=== PATIENT | male | born 1975 | race Caucasian/White ===

== ENCOUNTER 2016-10-14 12:16 | Emergency (ER) | payer MEDICAID ==
--- NOTE | 2016-10-14 13:10 | ED Physician Documentation ---
History of Present Illness - Stated complaint Stated Complaint: ABD BURNING,N/V - Chief complaint Chief Complaint: Abd Pain - Additonal information Additional information: hx from pt 41 male always has nausea 2/2 hashimotos but last few days increasing severe upper abd burning radiating to his chest no back or shoulder pain no fever no vomit or diarrhea or blood in stool no asa NSAID EtOH spicy food or stress fhx gallstones no prior surgery Review of Systems Constitutional: denies: Fever Throat: denies: Sore throat Cardiac: reports: Chest pain / pressure (rad from abd) Respiratory: denies: Dyspnea, Cough GI: reports: Abdominal Pain, Nausea. denies: Vomiting, Diarrhea, Bloody / black stool : denies: Dysuria Musculoskeletal: denies: Neck pain, Back pain Neurologic: denies: Generalized weakness Endocrine: denies: Easy bruising / bleeding Immunocompromised: denies: Immunocompromised PD PAST MEDICAL HISTORY - Past Medical History Past Medical History: Yes Other Past Medical History: delisa's - Past Surgical History Past Surgical History: No - Present Medications Home Medications: Ambulatory Orders Medication Instructions Recorded Confirmed Levothyroxine [Synthroid] 125 mcg DAILY 10/14/16 10/14/16 Ondansetron Odt [Zofran] 4 mg TL Q6H PRN #10 tablet 10/14/16 Sucralfate 1 gm PO ACHS #120 tablet 10/14/16 raNITIdine [Zantac] 150 mg PO BID #60 tablet 10/14/16 - Allergies Allergies/Adverse Reactions: Allergies Allergy/AdvReac Type Severity Reaction Status Date / Time No Known Drug Allergies Allergy Verified 10/14/16 12:22 - Social History Does the pt smoke?: No Smoking Status: Never smoker Does the pt drink ETOH?: No Does the pt have substance abuse?: No PD ED PE NORMAL - Vitals Vital signs reviewed: Yes - General General: Alert and oriented X 3 - HEENT HEENT: PERRL - Neck Neck: Supple, no meningeal sign - Cardiac Cardiac: RRR - Respiratory Respiratory: No respiratory distress, Clear bilaterally - Abdomen Abdomen: Soft, Other (sig TTP with some guarding to upper abd > lower abd) - Derm Derm: Normal color - Extremities Extremities: No deformity - Neuro Neuro: Alert and oriented X 3 Results - Vitals Vitals: Vital Signs - 24 hr 10/14/16 10/14/16 12:20 15:34 Temperature 36.6 C Heart Rate 63 49 L Respiratory 18 18 Rate Blood Pressure 142/77 H 116/64 O2 Saturation 98 100 Oxygen O2 Source Room air - Labs Labs: Laboratory Tests 10/14/16 10/14/16 10/14/16 13:09 13:09 13:09 WBC 7.4 RBC 4.02 L Hgb 12.2 L Hct 35.7 L MCV 88.9 MCH 30.4 MCHC 34.2 RDW 14.0 Plt Count 215 MPV 8.2 Neut # 4.9 Lymph # 1.8 [place] # 0.5 Eos # 0.1 Baso # 0.1 Absolute Nucleated RBC 0.00 Nucleated RBCs 0.0 Sodium 139 Potassium 3.8 Chloride 103 Carbon Dioxide 27 Anion Gap 9.0 BUN 20 Creatinine 0.8 Estimated GFR (MDRD) 108 Glucose 92 Calcium 9.3 Total Bilirubin 0.5 AST 26 ALT 20 Alkaline Phosphatase 43 Troponin I < 0.04 Total Protein 7.1 Albumin 4.5 Globulin 2.6 Albumin/Globulin Ratio 1.7 Lipase 25 PD MEDICAL DECISION MAKING - ED course ED course: pt felt much better after meds only / now no sig TTP on exam registration helped pt with paperwork to sign up for insurance Departure - Departure Disposition: Home, Self Care Clinical Impression: Abdominal pain Qualifiers: Abdominal location: epigastric Qualified Code(s): R10.13 - Epigastric pain Condition: Good Instructions: ED PUD Vs Gastritis Follow-Up: SHEA ALVAREZ MD [Provider Admit Priv/Credential] - (to recheck your anemia and for consideration of endoscopy and/or gallbladder ultrasound if your symptoms persist ) [facility] [Provider Group] (to establish care and further evaluate your anemia ) [facility] [Provider Group] (to establish care and further evaluate your anemia) Prescriptions: Sucralfate 1 gm PO ACHS #120 tablet raNITIdine [Zantac] 150 mg PO BID #60 tablet Ondansetron Odt [Zofran] 4 mg TL Q6H PRN #10 tablet PRN Reason: Nausea / Vomiting Comments: Your labs were fine except for mild anemia Your CT scan did not show any major abnormalities Your gallbladder in unusually placed more midline than normal and near where you hurt - but there are no gallstones seen, the gallbladder does not appear inflamed, and your liver tests are not elevated so I don't think your pain is from the gallbladder. I suspect your pain is due to gastritis and acid reflux I have prescribed some medication to ease your symptoms Please follow up with surgery clinic for a recheck of your symptoms and your anemia and for consideration of endoscopy if th symptoms persist. If your symptoms persist despite the medications I prescribed, I would also recommend an ultrasound of your gallbladder Also please follow up with your PMD about your blood pressure - it was high today Forms: Activity restrictions
[2016-10-14 13:51] LABS: BASOPHILS # (AUTO) 0.1 10^3/uL (0.0-0.1); BASOPHILS % (AUTO) 0.9 %; EOSINOPHILS # (AUTO) 0.1 10^3/uL (0.0-0.7); EOSINOPHILS % (AUTO) 1.5 %; HCT - HEMATOCRIT 35.7 % (42.0-52.0); HGB - HEMOGLOBIN 12.2 g/dL (14.0-18.0); LYMPHOCYTES # (AUTO) 1.8 10^3/uL (1.5-3.5); LYMPHOCYTES % (AUTO) 24.8 %; MEAN CORPUSCULAR HEMOGLOBIN 30.4 pg (27.0-31.0); MEAN CORPUSCULAR HGB CONC 34.2 g/dL (32.0-36.0); MEAN CORPUSCULAR VOLUME 88.9 fL (80.0-94.0); MEAN PLATELET VOLUME 8.2 fL (7.4-11.4); MONOCYTES # (AUTO) 0.5 10^3/uL (0.0-1.0); MONOCYTES % (AUTO) 6.7 %; NEUTROPHILS # (AUTO) 4.9 10^3/uL (1.5-6.6); NEUTROPHILS % (AUTO) 66.1 %; RED BLOOD COUNT 4.02 10^6/uL (4.70-6.10); UNCORRECTED WHITE BLOOD COUNT 7.4 x10^3/uL; WHITE BLOOD COUNT 7.4 x10^3/uL (4.8-10.8)
[2016-10-14 14:01] LABS: ALBUMIN/GLOBULIN RATIO 1.7 (1.0-2.2); BILIRUBIN,TOTAL 0.5 mg/dL (0.2-1.0); CALCIUM 9.3 mg/dL (8.5-10.3); CREATININE 0.8 mg/dL (0.6-1.2); POTASSIUM 3.8 mmol/L (3.5-5.0); TOTAL PROTEIN 7.1 g/dL (6.7-8.2)
[2016-10-14] MEDS ORDERED: FAMOTIDINE 20 MG/2 ML VIAL IVP STA (14:27)
[2016-10-14] MEDS ORDERED: SUCRALFATE 1 GM/10 ML UDC PO STA (14:27)
[2016-10-14] MEDS ORDERED: ONDANSETRON 4 MG/2 ML VIAL IVP STA (14:27)
[2016-10-14] MEDS ORDERED: FAMOTIDINE 20 MG/2 ML VIAL ONE (14:31)
[2016-10-14] MEDS ORDERED: SUCRALFATE 1 GM/10 ML UDC ONE (14:31)
[2016-10-14] MEDS ORDERED: ONDANSETRON 4 MG/2 ML VIAL ONE (14:31)
[2016-10-14] MEDS ORDERED: IOPAMIDOL-300 100 ML VIAL IVP ONE (14:38)
--- NOTE | 2016-10-14 15:13 | CT Preliminary Report ---
Exam: CT Abdomen/Pelvis W/ IMPRESSION: 1. No bowel obstruction or inflammatory process associated with the bowel. 2. No free air or fluid in the abdomen or pelvis. 3. The appendix images normally. [facility] SITE ID: [id number]
--- NOTE | 2016-10-14 15:16 | CT Report ---
EXAM: CT ABDOMEN AND PELVIS EXAM DATE: 10/14/2016 02:34 PM. CLINICAL HISTORY: Upper abd pain with peritoneal signs. COMPARISONS: None. TECHNIQUE: Routine helical CT imaging was performed through the abdomen and pelvis. IV contrast: 100 mL Isovue-300. Enteric contrast: No. Reconstructions: Coronal and sagittal. In accordance with CT protocol optimization, one or more of the following dose reduction techniques w ere utilized for this exam: automated exposure control, adjustment of mA and/or KV based on patient s ize, or use of iterative reconstructive technique. FINDINGS: Lung Bases: Unremarkable. Liver: Normal. No masses. Gallbladder/Bile Ducts: Unremarkable. Spleen: Normal. Pancreas: Normal. Adrenal Glands: Normal. Kidneys: Normal. No masses or hydronephrosis. Peritoneal Cavity/Bowel: Normal. No free fluid, free air or adenopathy. No masses or acute inflammato ry process. The appendix is well visualized and normal. Pelvic Organs: Normal. The bladder and visualized pelvic organs are within normal limits. Vasculature: No aneurysms or other significant abnormality. Bones: No significant abnormality. Other: None. IMPRESSION: 1. No bowel obstruction or inflammatory process associated with the bowel. 2. No free air or fluid in the abdomen or pelvis. 3. The appendix images normally. [facility] Referring Provider Line: [phone] SITE ID: [id number]
[2016-10-14 15:35] VITALS: BP 116/64
== END 2016-10-14 15:44 | disposition home or self-care (01) ==
LOC: ED 12:16
DX: R10.13 Epigastric pain (principal); E06.3 Autoimmune thyroiditis
CPT/HCPCS: 36415; 74177; 80053; 83690; 84484; 85025; 96374; 96375; 99283; 99284; A9270; Q9967

== ENCOUNTER 2016-12-17 08:45 | Outpatient (CLI) | payer MEDICAID ==
[2016-12-17 12:59] LABS: BASOPHILS % (AUTO) 0.5 %; EOSINOPHILS # (AUTO) 0.2 10^3/uL (0.0-0.7); LYMPHOCYTES # (AUTO) 1.9 10^3/uL (1.5-3.5); MEAN CORPUSCULAR HEMOGLOBIN 30.8 pg (27.0-31.0); MEAN CORPUSCULAR HGB CONC 34.3 g/dL (32.0-36.0); MEAN CORPUSCULAR VOLUME 89.9 fL (80.0-94.0); MEAN PLATELET VOLUME 8.4 fL (7.4-11.4); MONOCYTES # (AUTO) 0.8 10^3/uL (0.0-1.0); MONOCYTES % (AUTO) 9.7 %; NEUTROPHILS # (AUTO) 5.1 10^3/uL (1.5-6.6); NEUTROPHILS % (AUTO) 63.8 %; RED BLOOD COUNT 4.22 10^6/uL (4.70-6.10); RED CELL DISTRIBUTION WIDTH 13.4 % (12.0-15.0)
[2016-12-17 13:01] LABS: ALBUMIN/GLOBULIN RATIO 1.6 (1.0-2.2); BILIRUBIN,TOTAL 0.4 mg/dL (0.2-1.0); BUN - BLOOD UREA NITROGEN 22 mg/dL (6-20); CALCIUM 9.4 mg/dL (8.5-10.3); CARBON DIOXIDE - CO2 28 mmol/L (21-32); CHLORIDE 105 mmol/L (101-111); CHOL/HDL RATIO 2.7 (<5.0); CHOLESTEROL 179 mg/dL; CREATININE 0.8 mg/dL (0.6-1.2); GFR - MDRD 108 (>89); GLUCOSE 101 mg/dL (70-100); HDL CHOLESTEROL 66 mg/dL; LDL/HDL RATIO 1.6 (<3.6); POTASSIUM 4.1 mmol/L (3.5-5.0); SODIUM 139 mmol/L (135-145); TOTAL PROTEIN 7.2 g/dL (6.7-8.2); TRIGLYCERIDES 41 mg/dL; VLDL CHOLESTEROL 8 mg/dL
== END 2016-12-17 08:46 | disposition home or self-care (01) ==
LOC: LAB.N 08:45
PROVIDERS: ATTEND Physician Assistant
DX: E03.9 Hypothyroidism, unspecified (principal)
CPT/HCPCS: 36415; 80053; 80061; 84443; 85025

== ENCOUNTER 2017-08-07 08:00 | Outpatient (CLI) | payer MEDICAID ==
[2017-08-07 19:01] LABS: BASOPHILS % (AUTO) 0.6 %; EOSINOPHILS # (AUTO) 0.2 10^3/uL (0.0-0.7); HGB - HEMOGLOBIN 12.4 g/dL (14.0-18.0); LYMPHOCYTES # (AUTO) 2.3 10^3/uL (1.5-3.5); LYMPHOCYTES % (AUTO) 28.8 %; MEAN CORPUSCULAR HEMOGLOBIN 29.7 pg (27.0-31.0); MEAN CORPUSCULAR HGB CONC 33.2 g/dL (32.0-36.0); MEAN CORPUSCULAR VOLUME 89.6 fL (80.0-94.0); MEAN PLATELET VOLUME 8.1 fL (7.4-11.4); MONOCYTES # (AUTO) 0.5 10^3/uL (0.0-1.0); MONOCYTES % (AUTO) 6.9 %; NEUTROPHILS # (AUTO) 4.9 10^3/uL (1.5-6.6); NEUTROPHILS % (AUTO) 61.7 %; PLT - PLATELET COUNT 220 10^3/uL (130-450); RED BLOOD COUNT 4.18 10^6/uL (4.70-6.10); RED CELL DISTRIBUTION WIDTH 13.4 % (12.0-15.0); WHITE BLOOD COUNT 7.9 x10^3/uL (4.8-10.8)
[2017-08-07 19:20] LABS: ALBUMIN 4.6 g/dL (3.2-5.5); ALBUMIN/GLOBULIN RATIO 1.6 (1.0-2.2); BILIRUBIN,TOTAL 0.5 mg/dL (0.2-1.0); CALCIUM 9.3 mg/dL (8.5-10.3); CREATININE 0.9 mg/dL (0.6-1.2); TOTAL PROTEIN 7.4 g/dL (6.7-8.2)
[2017-08-07 19:34] LABS: THYROID STIMULATING HORMONE 16.54 uIU/mL (0.34-5.60)
[2017-08-07 19:38] LABS: FREE T4 (FREE THYROXINE) 0.82 ng/dL (0.58-1.64)
[2017-08-09 11:36] LABS: THYROID PEROXIDASE ANTIBODIES >900 IU/mL (<9)
== END 2017-08-07 08:01 | disposition home or self-care (01) ==
LOC: LAB.N 08:00
PROVIDERS: ATTEND Nurse Practitioner
DX: E55.9 Vitamin D deficiency, unspecified (principal); E03.9 Hypothyroidism, unspecified; R53.83 Other fatigue; R11.0 Nausea; R63.6 Underweight; Z68.1 Body mass index [BMI] 19.9 or less, adult
CPT/HCPCS: 36415; 80053; 82306; 82607; 82746; 84439; 84443; 85025; 86376; 86800

== ENCOUNTER 2017-10-20 12:33 | Emergency (ER) | payer MEDICAID ==
[2017-10-20] MEDS ORDERED: CYCLOBENZAPRINE 10 MG TABLET PO STA (13:54)
[2017-10-20] MEDS ORDERED: LIDOCAINE PATCH 5% TOP PRN (13:54)
[2017-10-20] MEDS ORDERED: IBUPROFEN 400 MG TABLET PO STA (13:54)
--- NOTE | 2017-10-20 14:45 | ED Physician Documentation ---
History of Present Illness - Stated complaint Stated Complaint: BACK PX - Chief complaint Chief Complaint: Back Pain - Additonal information Additional information: hx from pt 42 male healthy except thyroid dz no fhx of spine or vascular problems low T spine pain described as burning worse with bending forward no chest pain no abd pain no fever no IV meds or drugs, recent surgery etc no heamturia no icnont no saddel anesthesia no numbness or weakness Review of Systems Constitutional: denies: Fever Cardiac: denies: Chest pain / pressure Respiratory: denies: Dyspnea GI: denies: Abdominal Pain : denies: Dysuria, Incontinent, Hematuria Musculoskeletal: reports: Back pain Neurologic: denies: Focal weakness, Numbness Endocrine: denies: Easy bruising / bleeding Immunocompromised: denies: Immunocompromised PD PAST MEDICAL HISTORY - Past Surgical History Past Surgical History: No - Present Medications Home Medications: Ambulatory Orders Medication Instructions Recorded Confirmed Levothyroxine [Synthroid] 125 mcg DAILY 10/14/16 03/13/17 Cyclobenzaprine [Flexeril] 10 mg PO TID PRN #20 tablet 10/20/17 Ibuprofen [Motrin] 400 mg PO Q6H PRN #30 tablet 10/20/17 Lidocaine Patch 5% [Lidoderm Patch] 1 each TOP DAILY PRN #10 patch 10/20/17 - Allergies Allergies/Adverse Reactions: Allergies Allergy/AdvReac Type Severity Reaction Status Date / Time No Known Drug Allergies Allergy Verified 03/13/17 23:42 - Social History Does the pt smoke?: No Smoking Status: Never smoker Does the pt drink ETOH?: No Does the pt have substance abuse?: No - Immunizations Immunizations are current?: Yes - POLST Patient has POLST: No PD ED PE NORMAL - Vitals Vital signs reviewed: Yes - General General: Alert and oriented X 3 - HEENT HEENT: PERRL - Neck Neck: Supple, no meningeal sign - Cardiac Cardiac: RRR - Respiratory Respiratory: No respiratory distress, Clear bilaterally - Abdomen Abdomen: Soft, Non tender, Other (no pulsatile mass) - Back Back: Other (low T spine TTP and limited ROM s redness warmth or swelling) - Derm Derm: Normal color - Neuro Neuro: Alert and oriented X 3, No motor deficit, No sensory deficit, Other (hip flexion knee ext foot dorso plantar 5/5 neg SLR, no clonus, denies numbenss and saddle anestheia) Results - Vitals Vitals: Vital Signs - 24 hr 10/20/17 12:43 Temperature 36.7 C Heart Rate 56 L Respiratory 16 Rate Blood Pressure 121/67 O2 Saturation 98 Oxygen O2 Source Room air - Rads (name of study) T spine Radiology: See rad report (negative, nl bone, aortic knob clear and normal) PD MEDICAL DECISION MAKING - Sepsis Event Vital Signs: Vital Signs - 24 hr 10/20/17 12:43 Temperature 36.7 C Heart Rate 56 L Respiratory 16 Rate Blood Pressure 121/67 O2 Saturation 98 Oxygen O2 Source Room air Departure - Departure Disposition: Home, Self Care Clinical Impression: Thoracic back pain Qualifiers: Chronicity: acute Back pain laterality: bilateral Qualified Code(s): M54.6 - Pain in thoracic spine Condition: Good Instructions: ED Neck Back Pain General Follow-Up: Verna Baez, DNP [Primary Care Provider] - Prescriptions: Cyclobenzaprine [Flexeril] 10 mg PO TID PRN #20 tablet PRN Reason: Spasms Ibuprofen [Motrin] 400 mg PO Q6H PRN #30 tablet PRN Reason: Pain Lidocaine Patch 5% [Lidoderm Patch] 1 each TOP DAILY PRN #10 patch PRN Reason: Pain Comments: The xray was fine - no bony abnormalities or signs of an aneurysm The pain is likely in the muscles of your back I have prescribed medications to ease the pain Try and limit lifting for at least a week. Physical therapy may help as well - call your insurance company to ask what is covered Forms: Activity restrictions
[2017-10-20 16:08] VITALS: BP 120/81
--- NOTE | 2017-10-21 09:11 | XRAY Report ---
Procedure Date: 10/20/2017 Accession Number: [id number] / [id number] Procedure: XR - Thoracic Spine 2 View CPT Code: FULL RESULT: EXAM: THORACIC SPINE RADIOGRAPHY EXAM DATE: 10/20/2017 02:08 PM. CLINICAL HISTORY: Upper back pain. COMPARISON: None. TECHNIQUE: 2 views. FINDINGS: Alignment: Normal. No spondylolisthesis or scoliosis. Bones: No evidence of acute fracture. Disks: Normal. Disk heights are maintained. Soft Tissues: Unremarkable. IMPRESSION: Negative thoracic spine radiography. [facility]
== END 2017-10-20 16:07 | disposition home or self-care (01) ==
LOC: ED 12:33
DX: M54.6 Pain in thoracic spine (principal)
CPT/HCPCS: 72070; 99283; A9270

== ENCOUNTER 2017-11-11 13:36 | Outpatient (CLI) | payer MEDICAID ==
[2017-11-11 18:43] LABS: MEAN RETIC VALUE 105.2; RED BLOOD COUNT 4.17 10^6/uL (4.70-6.10)
[2017-11-11 19:06] LABS: % IRON SATURATION 17 % (20-50); IRON 66 ug/dL (45-182); TOTAL IRON BINDING CAPACITY 389 ug/dL (250-450); TRANSFERRIN 278 mg/dL (180-329)
[2017-11-11 19:13] LABS: THYROID STIMULATING HORMONE 0.2 uIU/mL (0.34-5.60)
[2017-11-11 19:21] LABS: FERRITIN 36.4 ng/mL (23.9-336.2)
== END 2017-11-11 13:37 | disposition home or self-care (01) ==
LOC: LAB.N 13:36
PROVIDERS: ATTEND Nurse Practitioner
DX: E55.9 Vitamin D deficiency, unspecified (principal); D64.9 Anemia, unspecified; E03.9 Hypothyroidism, unspecified
CPT/HCPCS: 36415; 81599; 82306; 82607; 82728; 82746; 83021; 83540; 84443; 84466; 85014; 85018; 85044

== ENCOUNTER 2018-05-16 08:00 | Outpatient (CLI) | payer MEDICAID | END 2018-05-16 23:59 | disposition home or self-care (01) | LOC: LAB.N 08:00 | PROVIDERS: ATTEND Nurse Practitioner | DX: E03.9 Hypothyroidism, unspecified (principal) | CPT/HCPCS: 36415; 84443 ==

== ENCOUNTER 2018-05-17 08:35 | Outpatient (CLI) | payer MEDICAID ==
--- NOTE | 2018-05-18 16:36 | XRAY Report ---
Reason: HIP JOINT PAIN,LEFT Procedure Date: 05/17/2018 Accession Number: [id number] / [id number] Procedure: XR - Hips 2V BILAT CPT Code: FULL RESULT: EXAM: BILATERAL HIP RADIOGRAPHY EXAM DATE: 05/17/2018 08:51 AM. CLINICAL HISTORY: HIP JOINT Pain, left. COMPARISON: None. TECHNIQUE: 2 views each. FINDINGS: Bones: Fractures or bone lesion. Right Hip: Dislocation. The hip joint space is preserved. Left Hip: Normal. No dislocation. The hip joint space is preserved. Soft Tissues: Normal. No soft tissue swelling. IMPRESSION: Normal bilateral hip radiography. [facility]
== END 2018-05-17 08:36 | disposition home or self-care (01) ==
LOC: DI 08:35
PROVIDERS: ATTEND Nurse Practitioner
DX: M25.552 Pain in left hip (principal)
CPT/HCPCS: 73521

== ENCOUNTER 2018-07-15 08:00 | Outpatient (CLI) | payer MEDICAID ==
[2018-07-15 19:38] LABS: CRP - C-REACTIVE PROTEIN < 1.0 mg/dL (0-1.0); URIC ACID 4.6 mg/dL (2.6-7.2)
[2018-07-15 20:01] LABS: RHEUMATOID FACTOR NEGATIVE (Negative)
[2018-07-17 14:56] LABS: ANA SCREEN NEGATIVE (NEGATIVE)
== END 2018-07-15 23:59 | disposition home or self-care (01) ==
LOC: LAB.N 08:00
PROVIDERS: ATTEND Nurse Practitioner
DX: E06.3 Autoimmune thyroiditis (principal); R53.83 Other fatigue; M25.50 Pain in unspecified joint
CPT/HCPCS: 36415; 84550; 85651; 86038; 86140; 86200; 86430

== ENCOUNTER 2019-05-14 08:00 | Outpatient (CLI) | payer MEDICAID ==
[2019-05-14 12:37] LABS: THYROID STIMULATING HORMONE 0.99 uIU/mL (0.34-5.60)
[2019-05-14 12:39] LABS: FREE T4 (FREE THYROXINE) 0.99 ng/dL (0.58-1.64)
== END 2019-05-14 23:59 | disposition home or self-care (01) ==
LOC: LAB.N 08:00
PROVIDERS: ATTEND Physician Assistant Medical
DX: E03.9 Hypothyroidism, unspecified (principal)
CPT/HCPCS: 36415; 84439; 84443

== ENCOUNTER 2019-06-01 17:34 | Emergency (ER) | payer MEDICAID ==
[2019-06-01 17:42] VITALS: BP 121/80
--- NOTE | 2019-06-01 17:55 | ED Physician Documentation ---
PD HPI HEENT - Stated complaint Stated Complaint: LT SIDE FACIAL,NECK,EAR PAIN - Chief complaint Chief Complaint: Heent - History obtained from History obtained from: Patient - History of Present Illness Timing - onset: How many weeks ago (4) Timing - duration: Weeks (4) Timing - details: Gradual onset, Still present, Waxing and waning Location: Left ear Improves: Medication Worsens: Swalllowing, Position Associated symptoms: Congestion, Rhinorrhea, Swollen nodes, Facial swelling, Headache, Cough Similar symptoms before: Diagnosis (sinusitis) Recently seen: Not recently seen - Additional information Additional information: 43-year-old male has had pain to the left side of his face is here headache a cough periodic fever and postnasal drainage for about 1 month. He has had undulation of his symptoms and today he is having increasing symptoms and is come to the emergency department for evaluation. He does have some reduced hearing on the left side. He does not think he has any problem with his teeth currently. Review of Systems Constitutional: reports: Myalgias. denies: Fever Eyes: denies: Decreased vision Ears: reports: Loss of hearing, Ear pain Nose: reports: Rhinorrhea / runny nose, Congestion, Sinus pressure / pain Throat: reports: Sore throat Cardiac: denies: Chest pain / pressure, Palpitations Respiratory: reports: Cough. denies: Dyspnea GI: denies: Vomiting PD PAST MEDICAL HISTORY - Past Surgical History Past Surgical History: No - Present Medications Home Medications: Ambulatory Orders Medication Instructions Recorded Confirmed Levothyroxine [Synthroid] 125 mcg DAILY 10/14/16 03/13/17 Cyclobenzaprine [Flexeril] 10 mg PO TID PRN #20 tablet 10/20/17 Ibuprofen [Motrin] 400 mg PO Q6H PRN #30 tablet 10/20/17 Lidocaine Patch 5% [Lidoderm Patch] 1 each TOP DAILY PRN #10 patch 10/20/17 Amox/Clav 875/125 [Augmentin] 1 each PO Q12H #20 tablet 06/01/19 - Allergies Allergies/Adverse Reactions: Allergies Allergy/AdvReac Type Severity Reaction Status Date / Time No Known Drug Allergies Allergy Verified 06/01/19 17:38 - Social History Does the pt smoke?: No Smoking Status: Never smoker Does the pt drink ETOH?: No Does the pt have substance abuse?: No - Immunizations Immunizations are current?: Yes - POLST Patient has POLST: No PD ED PE NORMAL - Vitals Vital signs reviewed: Yes (normal ) - General General: Alert and oriented X 3, Well developed/nourished, Other (43 y/o male clutching the left side of his face. ) - HEENT HEENT: Atraumatic, PERRL, EOMI, Pharynx benign, Dentition benign, Other (cerumen is present bilat. Cerumen is successfully removed from the left ear with mineral oil and water irrigation. This reveals erythema with distortion of the landmarks present with angry erythema. The right TM is not visible and we were unsuccessful in clearing the entire amount of cerumen from the ear canal.) - Neck Neck: Supple, no meningeal sign, No bony TTP - Cardiac Cardiac: RRR, No murmur - Respiratory Respiratory: No respiratory distress, Clear bilaterally - Abdomen Abdomen: Soft, Non tender - Back Back: No CVA TTP, No spinal TTP - Derm Derm: Normal color, Warm and dry, No rash - Extremities Extremities: No deformity, No edema - Neuro Neuro: Alert and oriented X 3, log yard manager 2-12 intact, No motor deficit, No sensory deficit, Normal speech Eye Opening: Spontaneous Motor: Obeys Commands Verbal: Oriented GCS Score: 15 - Psych Psych: Normal mood, Normal affect Results - Vitals Vitals: Vital Signs - 24 hr 06/01/19 17:38 Temperature 36.8 C Heart Rate 53 L Respiratory 14 Rate Blood Pressure 121/80 O2 Saturation 97 Oxygen O2 Source Room air Procedures - General procedure General procedure: Cerumen removal: With the use of mineral oil from a fleets enema the ears are both saturated with mineral oil. This is allowed to set for 10 minutes and following that the ears are irrigated with complete removal of cerumen from the left side and partial removal on the right side. The patient has significant pain associated with the procedure and this is eventually abandon when pain becomes intolerable. PD MEDICAL DECISION MAKING - ED course Complexity details: considered differential, d/w patient ED course: 43-year-old male with left-sided facial pain has otitis media on the left side. He does have bilateral cerumen impactions which are partially removed on the right and successfully removed on the left. The patient is administered dexamethasone 10 mg orally we will place him on some antibiotic and given instructions about otitis media. As well as a cerumen impaction and home care. Departure - Departure Disposition: 01 Home, Self Care Clinical Impression: Impacted cerumen of both ears Otitis media Qualifiers: Otitis media type: suppurative Chronicity: acute Laterality: left Recurrence: non-recurrent Spontaneous tympanic membrane rupture: without spontaneous rupture Qualified Code(s): H66.002 - Acute suppurative otitis media without spontaneous rupture of ear drum, left ear Condition: Stable Instructions: ED Otitis Media Acute Adult, ED Wax Ear Home Removal Follow-Up: Brian Katz PA-C [Primary Care Provider] - Prescriptions: Amox/Clav 875/125 [Augmentin] 1 each PO Q12H #20 tablet
[2019-06-01] MEDS ORDERED: CHERRY SYRUP 10 ML UDC PO ONE (18:16)
[2019-06-01] MEDS ORDERED: DEXAMETHASONE 10 MG/ML VIAL PO STA (18:16)
== END 2019-06-01 18:25 | disposition home or self-care (01) ==
LOC: ED 17:34
DX: H61.23 Impacted cerumen, bilateral (principal); H66.002 Acute suppurative otitis media without spontaneous rupture of ear drum, left ear
CPT/HCPCS: 69209; 99282; 99284; A9270

== ENCOUNTER 2019-06-30 16:54 | Outpatient (CLI) | payer MEDICAID | END 2019-06-30 23:59 | disposition home or self-care (01) | LOC: LAB.R 16:54 | PROVIDERS: ATTEND Nurse Practitioner Gerontology | DX: R50.9 Fever, unspecified (principal) | CPT/HCPCS: 87275; 87276 ==

== ENCOUNTER 2019-07-01 23:30 | Emergency (ER) | payer MEDICAID ==
[2019-07-01] MEDS ORDERED: SODIUM CHLORIDE 0.9% 1,000 ML IV ONE (23:49)
[2019-07-01] MEDS ORDERED: ONDANSETRON 4 MG/2 ML VIAL IVP STA (23:50)
[2019-07-01 23:57] LABS: BASOPHILS % (AUTO) 0.6 %; EOSINOPHILS % (AUTO) 2.6 %; HGB - HEMOGLOBIN 15.9 g/dL (14.0-18.0); LYMPHOCYTES % (AUTO) 16.3 %; MEAN CORPUSCULAR HEMOGLOBIN 33.3 pg (27.0-31.0); MEAN CORPUSCULAR HGB CONC 36.1 g/dL (32.0-36.0); MEAN CORPUSCULAR VOLUME 92.3 fL (80.0-94.0); MEAN PLATELET VOLUME 10.6 fL (7.4-11.4); MONOCYTES % (AUTO) 12.9 %; NEUTROPHILS % (AUTO) 67.4 %; PLT - PLATELET COUNT 180 10^3/uL (130-450); RED BLOOD COUNT 4.78 10^6/uL (4.70-6.10); WHITE BLOOD COUNT 5.3 x10^3/uL (4.8-10.8)
[2019-07-02 00:06] LABS: ALBUMIN 4.8 g/dL (3.2-5.5); ALBUMIN/GLOBULIN RATIO 1.3 (1.0-2.2); BILIRUBIN,TOTAL 0.3 mg/dL (0.2-1.0); CALCIUM 9.5 mg/dL (8.5-10.3); CREATININE 0.9 mg/dL (0.6-1.2); TOTAL PROTEIN 8.4 g/dL (6.7-8.2)
--- NOTE | 2019-07-02 00:58 | ED Physician Documentation ---
History of Present Illness - Stated complaint Stated Complaint: VOMITING/BACK PX - Chief complaint Chief Complaint: General - History obtained from History obtained from: Patient - History of Present Illness Timing: How many days ago (3) - Additonal information Additional information: 43 YEAR OLD MALE WITH KAREEN THYOROIDITIS WHO [facility] 3 DAYS OF NASAL CONGESTION, NON-PRODUCTIVE COUGH AND FEVER OF 101. HE WAS SEEN BY A DIFFERENT PROVIDER AT THIS PCP'S CLINIC. HE WAS TREATED WITH TAMIFLU FOR FLU LIKE ILLNESS DESPITE NEGATIVE INFLUENZA SWAB. HE REPORTED OF SEVERAL TIMES OF VOMITING AND MULTIPLE TIMES OF DIARRHEA. HE DENIES ABDOMINAL PAIN, CHEST PAIN, SHORTNESS OF BREATH, DIZZINESS, SYNCOPE OR NEAR SYNCOPE. Review of Systems Constitutional: reports: Fever. denies: Chills Eyes: denies: Photophobia, Discharge Ears: denies: Drainage/discharge Nose: reports: Congestion. denies: Epistaxis Throat: denies: Oral lesions / sores Cardiac: denies: Chest pain / pressure, Palpitations Respiratory: reports: Cough. denies: Dyspnea, Hemoptysis GI: reports: Vomiting, Diarrhea. denies: Abdominal Pain, Hematemesis, Bloody / black stool : denies: Dysuria, Frequency Skin: denies: Rash Musculoskeletal: denies: Neck pain, Back pain Neurologic: denies: Generalized weakness, Focal weakness, Syncope PD PAST MEDICAL HISTORY - Past Medical History Cardiovascular: None Respiratory: None Endocrine/Autoimmune: HyPOthyroidism - Past Surgical History Past Surgical History: No - Present Medications Home Medications: Ambulatory Orders Medication Instructions Recorded Confirmed Levothyroxine Sodium [Synthroid] 150 mcg PO DAILY 07/01/19 07/01/19 Ondansetron Odt [Zofran] 4 mg TL Q6H PRN #10 tablet 07/02/19 - Allergies Allergies/Adverse Reactions: Allergies Allergy/AdvReac Type Severity Reaction Status Date / Time No Known Drug Allergies Allergy Verified 07/01/19 23:52 - Social History Does the pt smoke?: No Smoking Status: Never smoker Does the pt drink ETOH?: No Does the pt have substance abuse?: No - Immunizations Immunizations are current?: Yes - POLST Patient has POLST: No PD ED PE NORMAL - General General: Alert and oriented X 3, No acute distress, Well developed/nourished - HEENT HEENT: Atraumatic, PERRL, EOMI - Neck Neck: Supple, no meningeal sign - Cardiac Cardiac: RRR - Respiratory Respiratory: No respiratory distress - Abdomen Abdomen: Normal bowel sounds, Soft, Non tender, Non distended - Back Back: No CVA TTP - Derm Derm: Normal color, Warm and dry - Extremities Extremities: No deformity, No tenderness to palpate, Normal ROM s pain, No edema, No calf tenderness / cord - Neuro Neuro: Alert and oriented X 3, cable dispatcher 2-12 intact Eye Opening: Spontaneous Motor: Obeys Commands Verbal: Oriented GCS Score: 15 Results - Vitals Vitals: Oxygen O2 Source Room air - Labs Labs: Laboratory Tests 07/01/19 07/01/19 23:45 23:45 WBC 5.3 RBC 4.78 Hgb 15.9 Hct 44.1 MCV 92.3 MCH 33.3 H MCHC 36.1 H RDW 15.0 Plt Count 180 MPV 10.6 Neut # (Auto) Not Reportable Lymph # (Auto) Not Reportable [place] # (Auto) Not Reportable Eos # (Auto) Not Reportable Baso # (Auto) Not Reportable Absolute Nucleated RBC Not Reportable Total Counted 100 Band Neuts % (Manual) 10 Abnorm Lymph % (Manual) 0 Nucleated RBC % Not Reportable Neutrophils # (Manual) 4.1 Lymphocytes # (Manual) 0.6 L Monocytes # (Manual) 0.5 Eosinophils # (Manual) 0.0 Basophils # (Manual) 0.0 Differential Comment MANUAL DIFFERENTIAL Platelet Estimate NORMAL (130-450,000) RBC Morph Micro Appear NORMAL APPEARANCE Sodium 133 L Potassium 3.9 Chloride 98 L Carbon Dioxide 22 Anion Gap 13.0 BUN 21 H Creatinine 0.9 Estimated GFR (MDRD) 93 Glucose 123 H Calcium 9.5 Total Bilirubin 0.3 AST 31 ALT 20 Alkaline Phosphatase 45 Total Protein 8.4 H Albumin 4.8 Globulin 3.7 Albumin/Globulin Ratio 1.3 Lipase 36 PD MEDICAL DECISION MAKING - ED course Complexity details: reviewed results, re-evaluated patient, d/w patient ED course: 43 YEAR OLD MALE PRESENTS TO THE EMERGENCY DEPARTMENT WITH CONGESTION AND FEVER OF 3 DAYS. PATIENT REPORTED OF SEVERAL TIMES OF VOMITING AND MOSTLY DIARRHEA FOR THE LAST 3 DAYS. HE REPORTED OF A DECREASE IN APPETITE. NO ABDOMINAL PAIN. REPEAT ABDOMINAL EXAM DEMONSTRATED NO ABDOMINAL TENDERNESS WITHOUT REBOUND OR GUARDING. PATIENT REMAINED HEMODYNAMICALLY STABLE. HE WAS GIVEN IV FLUID. HE WAS SEEN WALKING IN THE EMERGENCY DEPARTMENT WITHOUT DISTRESS. HE WAS AWAITING FOR A STOOL SAMPLE FOR COLLECTION. PATIENT WAS INFORMED THAT HE WOULD LIKE TO COLLECT A STOOL SAMPLE FOR TESTING. ON RECHECK, HE REPORTED THAT HE HAD A DIARRHEA BUT DID NOT COLLECT IT FOR TESTING. HE DID NOT FEEL LIKE HE COULD GO AHEAD AND WOULD LIKE TO FOLLOW UP WITH HIS PCP'S OFFICE FOR FURTHER TESTING. AT THIS TIME, NO EMERGENT CONDITION HAS BEEN IDENTIFIED. HE WAS STABLE TO BE DISCHARGED. Departure - Departure Disposition: 01 Home, Self Care Clinical Impression: Diarrhea, Vomiting Condition: Stable Instructions: ED Diet Vomiting Diarrhea Follow-Up: Brian Katz PA-C [Primary Care Provider] - Within 3 Days Prescriptions: Ondansetron Odt [Zofran] 4 mg TL Q6H PRN #10 tablet PRN Reason: Nausea / Vomiting Comments: PLEASE COLLECT A STOOL SAMPLE IN A CUP GIVEN TO YOU AND BRING IT TO YOUR DOCTOR'S OFFICE FOR FURTHER TESTING OF YOUR DIARRHEA ILLNESS. PLEASE RETURN TO THE EMERGENCY DEPARTMENT IF YOU DEVELOP ANY NEW OR CONCERNING SYMPTOMS. Discharge Date/Time: 07/02/19 02:44
[2019-07-02 01:02] LABS: ABNORMAL LYMPHS % (MANUAL) 0 %
[2019-07-02 01:37] LABS: BAND NEUTROPHILS % (MANUAL) 10 %; DIFFERENTIAL COMMENT MANUAL DIFFERENTIAL; LYMPHOCYTES # (MANUAL) 0.6 10^3/uL (1.5-3.5); LYMPHOCYTES % (MANUAL) 12 %; MONOCYTES # (MANUAL) 0.5 10^3/uL (0.0-1.0); PLATELET ESTIMATE, MANUAL NORMAL (130-450,000) (NORMAL); RBC MORPHOLOGY (MULTIPLE) NORMAL APPEARANCE (NORMAL)
[2019-07-02 02:13] VITALS: BP 122/82
== END 2019-07-02 02:44 | disposition home or self-care (01) ==
LOC: ED 23:30
DX: R19.7 Diarrhea, unspecified (principal); R11.10 Vomiting, unspecified; R09.81 Nasal congestion; R05 Cough; E06.3 Autoimmune thyroiditis
CPT/HCPCS: 36415; 80053; 83690; 85025; 96361; 96374; 99284

== ENCOUNTER 2020-01-03 18:21 | Emergency (ER) | payer MEDICAID ==
[2020-01-03] MEDS ORDERED: CLINDAMYCIN 150 MG CAPSULE PO STA (18:30)
--- NOTE | 2020-01-03 18:32 | ED Physician Documentation ---
History of Present Illness - Stated complaint Stated Complaint: THROAT SWELLING - History obtained from History obtained from: Patient - Additonal information Additional information: He presents with pain and swelling under the right side of the tongue for about 3 days. He does have some dental pain with it. He also notes some congestion. No fevers. Is been a long time since he seen a dentist. Review of Systems Constitutional: reports: Reviewed and negative Eyes: reports: Reviewed and negative Ears: reports: Reviewed and negative Nose: reports: Reviewed and negative PD PAST MEDICAL HISTORY - Past Medical History Cardiovascular: None Respiratory: None Endocrine/Autoimmune: HyPOthyroidism - Past Surgical History Past Surgical History: No - Present Medications Home Medications: Ambulatory Orders Medication Instructions Recorded Confirmed Levothyroxine Sodium [Synthroid] 150 mcg PO DAILY 07/01/19 07/01/19 Ondansetron Odt [Zofran] 4 mg TL Q6H PRN #10 tablet 07/02/19 Clindamycin HCl [Clindamycin 300MG 300 mg PO Q6H #28 capsule 01/03/20 CAP] - Allergies Allergies/Adverse Reactions: Allergies Allergy/AdvReac Type Severity Reaction Status Date / Time No Known Drug Allergies Allergy Verified 07/01/19 23:52 - Social History Does the pt smoke?: No Smoking Status: Never smoker Does the pt drink ETOH?: No Does the pt have substance abuse?: No - Immunizations Immunizations are current?: Yes - POLST Patient has POLST: No PD ED PE NORMAL - Vitals Vital signs reviewed: Yes - General General: Alert and oriented X 3, No acute distress - HEENT HEENT: Other (There is some fullness of the right submandibular gland, no brawny edema or lingual elevation. He has very mild trismus, generally poor dentition.) - Neck Neck: Supple, no meningeal sign, No bony TTP - Neuro Neuro: Alert and oriented X 3, Normal speech - Psych Psych: Normal mood, Normal affect Results - Vitals Vitals: Oxygen O2 Source Room air PD MEDICAL DECISION MAKING - ED course ED course: Exam is most consistent with sialadenitis, that said a dental infection is also on the differential. No overt signs of Jim's at this point. He is started on clindamycin and advised to use lemon heads and follow-up both with dentistry as well as ENT. Departure - Departure Disposition: 01 Home, Self Care Clinical Impression: Sialadenitis, Dental infection Condition: Good Record reviewed to determine appropriate education?: Yes Instructions: ED Abscess Dental, ED Sublingual Gland Obstruction Prescriptions: Clindamycin HCl [Clindamycin 300MG CAP] 300 mg PO Q6H #28 capsule Comments: As discussed, this is most consistent with a blocked salivary gland from a small stone, that said I do wonder if you have a dental infection as well. We are starting you on some antibiotics. You should use lemon heads to promote salivary flow as well. Follow-up with your dentist as soon as possible, also ENT if not better in the next few days, the closest is in [place], the phone number is [phone]. Return if worse.
[2020-01-03 18:33] VITALS: BP 145/96
== END 2020-01-03 18:39 | disposition home or self-care (01) ==
LOC: ED 18:21
DX: K11.20 Sialoadenitis, unspecified (principal); K04.7 Periapical abscess without sinus
CPT/HCPCS: 99282; 99284; A9270

== ENCOUNTER 2020-08-17 08:00 | Outpatient (CLI) | payer MEDICAID ==
[2020-08-17 20:45] LABS: BASOPHILS # (AUTO) 0.1 10^3/uL (0.0-0.1); BASOPHILS % (AUTO) 0.5 %; EOSINOPHILS % (AUTO) 0.2 %; HCT - HEMATOCRIT 40.4 % (42.0-52.0); HGB - HEMOGLOBIN 13.8 g/dL (14.0-18.0); LYMPHOCYTES # (AUTO) 1.7 10^3/uL (1.5-3.5); LYMPHOCYTES % (AUTO) 18.1 %; MEAN CORPUSCULAR HEMOGLOBIN 31.3 pg (27.0-31.0); MEAN CORPUSCULAR HGB CONC 34.2 g/dL (32.0-36.0); MEAN CORPUSCULAR VOLUME 91.6 fL (80.0-94.0); MEAN PLATELET VOLUME 10.1 fL (7.4-11.4); MONOCYTES # (AUTO) 0.6 10^3/uL (0.0-1.0); MONOCYTES % (AUTO) 6.6 %; NEUTROPHILS % (AUTO) 74.4 %; PLT - PLATELET COUNT 288 10^3/uL (130-450); RED BLOOD COUNT 4.41 10^6/uL (4.70-6.10); RED CELL DISTRIBUTION WIDTH 14.6 % (12.0-15.0); WHITE BLOOD COUNT 9.4 x10^3/uL (4.8-10.8)
[2020-08-17 21:00] LABS: ALBUMIN 5.1 g/dL (3.2-5.5); ALBUMIN/GLOBULIN RATIO 1.8 (1.0-2.2); ALKALINE PHOSPHATASE 72 IU/L (42-121); ALT ALANINE AMINOTRANSFERASE 20 IU/L (10-60); AST ASPARTATE AMINOTRANSFERASE 28 IU/L (10-42); BILIRUBIN,TOTAL 0.6 mg/dL (0.2-1.0); BUN - BLOOD UREA NITROGEN 20 mg/dL (6-20); CALCIUM 10.4 mg/dL (8.5-10.3); CARBON DIOXIDE - CO2 31 mmol/L (21-32); CHLORIDE 106 mmol/L (101-111); CHOL/HDL RATIO 2.7 (<5.0); CHOLESTEROL 212 mg/dL; CREATININE 0.8 mg/dL (0.6-1.2); GFR - MDRD 106 (>89); GLUCOSE 68 mg/dL (70-100); HDL CHOLESTEROL 79 mg/dL; POTASSIUM 4.5 mmol/L (3.5-5.0); SODIUM 144 mmol/L (135-145); TRIGLYCERIDES 26 mg/dL
[2020-08-17 21:35] LABS: THYROID STIMULATING HORMONE 0.01 uIU/mL (0.34-5.60)
[2020-08-17 22:07] LABS: FREE T4 (FREE THYROXINE) 1.35 ng/dL (0.58-1.64)
== END 2020-08-17 23:59 | disposition home or self-care (01) ==
LOC: LAB.WCP 08:00
PROVIDERS: ATTEND Family Medicine
DX: E06.3 Autoimmune thyroiditis (principal)
CPT/HCPCS: 36415; 80053; 80061; 83721; 84439; 84443; 85025